=== PATIENT | female | born 1980 | race Caucasian/White ===

== ENCOUNTER 2021-01-10 17:22 | Emergency (ER) | payer SELFPAY ==
[2021-01-10 17:49] VITALS: BMI 22.8
[2021-01-10 18:03] LABS: HCG,QUALITATIVE URINE Negative
[2021-01-10 18:12] LABS: EPITHELIAL CELLS FEW /hpf
[2021-01-10 19:15] VITALS: BP 145/100; PULSE 86; TEMP 98.5
== END 2021-01-10 19:24 | disposition home or self-care (01) ==
LOC: FER 17:22
DX: R30.0 Dysuria (principal); R31.29 Other microscopic hematuria
CPT/HCPCS: 81003; 81015; 84703; 87086; 99283-25